=== PATIENT | male | born 1950 | race Caucasian/White ===

== ENCOUNTER → 2022-04-05 | Outpatient (CLI) | payer MEDICARE, BC ==
--- NOTE | 2022-04-10 15:39 | HM ---
Holter monitor shows Sinus mechanism with heart rates averaging 68 beats a minute Paroxysmal atrial fibrillation with RVR up 170 beats a minute 1 short run of nonsustained ventricular tachycardia for 6 beats . Brief runs of nonsustained A. tach Occasional PVCs MTDD
== END | disposition home or self-care (01) ==
LOC: RADECHMAIN 11:49
PROVIDERS: ATTEND Family Medicine
DX: I49.3 Ventricular premature depolarization (principal); R53.83 Other fatigue
CPT/HCPCS: 93225; 93226